=== PATIENT | male | born 1950 | race Caucasian/White ===

== ENCOUNTER 2020-12-19 16:55 | Emergency (ER) | payer OTHER ==
[2020-12-19 17:41] VITALS: BMI 20.9
[2020-12-19 18:31] LABS: EPI CELLS 6 /uL (0-25.1); HYALINE CASTS 0 /uL (0-3.1); PH,URINE 8.5 (5.0-8.0); URINE APPEARANCE CLOUDY; URINE BACTERIA 69 /uL (0-1359); URINE BILIRUBIN NEGATIVE (NEGATIVE); URINE COLOR YELLOW; URINE GLUCOSE (UA) NEGATIVE (NEGATIVE); URINE KETONE NEGATIVE (NEGATIVE); URINE LEUK ESTERASE 1+ (NEGATIVE); URINE NITRITE NEGATIVE (NEGATIVE); URINE PROTEIN NEGATIVE (NEGATIVE); URINE RBC 20 /uL (0-23.9); URINE UROBILINOGEN 0.2 mg/dL (0.2-1.0); URINE WBC 94 /uL (0-25.8)
[2020-12-19 18:39] LABS: BASO % 1.1 % (0-2.0); EOS % 0.1 % (0-4.5); HEMATOCRIT 34.5 % (35.4-49); HEMOGLOBIN 11.8 GM/dL (11.7-16.9); LYMPH % 16.8 % (8-40); MCH 32.3 pg (25.7-33.7); MCHC 34.1 g/dl (32.0-35.9); MEAN CELL VOLUME 94.8 fl (80-96); MEAN PLT VOLUME 6.8 fl (7.5-11.1); MONO % 9.4 % (3.8-10.2); NEUT % 72.6 % (42.8-82.8); PLATELET COUNT 323 10^3/uL (134-434); RBC 3.64 M/mm3 (4.00-5.60); RDW 13.7 % (11.9-15.9); WHITE BLOOD COUNT 5.3 K/mm3 (4.0-10.0)
[2020-12-19 19:01] LABS: ALBUMIN 2.8 g/dl (3.4-5.0); BLOOD UREA NITROGEN 18.9 mg/dL (7-18); CALCIUM 8.9 mg/dL (8.5-10.1)
[2020-12-19 19:04] LABS: CREATININE 0.7 mg/dL (0.55-1.3)
[2020-12-19 19:06] LABS: BILIRUBIN,TOTAL 0.2 mg/dL (0.2-1); TOT PROT 6.2 g/dl (6.4-8.2)
[2020-12-20 00:38] VITALS: BP 126/72; PULSE 83; TEMP 98.6
== END 2020-12-20 00:39 ==
LOC: JER 16:55
DX: R33.9 Retention of urine, unspecified (principal)
CPT/HCPCS: 36415; 80053; 81003; 82570; 83930; 83935; 84300; 85025; 87086; 87186; 99283-25; 99285-25

== ENCOUNTER 2021-06-10 16:49 | Emergency (ER) | payer OTHER ==
[2021-06-10 17:34] VITALS: BMI 20.2
[2021-06-10 18:34] LABS: EPI CELLS 0 /uL (0-25.1); HYALINE CASTS 1 /uL (0-3.1); PH,URINE >= 9.0 (5.0-8.0); URINE APPEARANCE CLOUDY; URINE BACTERIA >9,000 /uL (0-1359); URINE BILIRUBIN NEGATIVE (NEGATIVE); URINE COLOR YELLOW; URINE GLUCOSE (UA) NEGATIVE (NEGATIVE); URINE KETONE NEGATIVE (NEGATIVE); URINE LEUK ESTERASE 3+ (NEGATIVE); URINE NITRITE NEGATIVE (NEGATIVE); URINE PROTEIN TRACE (NEGATIVE); URINE RBC 307 /uL (0-23.9); URINE UROBILINOGEN 0.2 mg/dL (0.2-1.0); URINE WBC 243 /uL (0-25.8)
[2021-06-10] MEDS ORDERED: NITROFURANTOIN MACROCRYSTAL 50 MG CAPSULE (FP) PO SCH (18:45)
[2021-06-10] MEDS ORDERED: CEPHALEXIN MONOHYDRATE 500 MG CAPSULE (UD) PO ONE (18:53)
[2021-06-10] MEDS ORDERED: CEPHALEXIN MONOHYDRATE 500 MG CAPSULE (UD) ONE (19:02)
[2021-06-11 01:49] VITALS: BP 151/85; PULSE 77; TEMP 98.2
== END 2021-06-11 03:20 | disposition home or self-care (01) ==
LOC: JER 16:49
DX: Z46.6 Encounter for fitting and adjustment of urinary device (principal)
CPT/HCPCS: 81003; 87086; 87186; 99283-25

== ENCOUNTER 2021-09-25 21:40 | Inpatient (IN) | payer OTHER ==
[2021-09-25] MEDS ORDERED: SODIUM CHLORIDE 0.9% 500 ML INFUS.BAG IV ONE (22:02)
[2021-09-25] MEDS ORDERED: ACETAMINOPHEN 1000 MG/100 ML BAG IVPB ONE (22:02)
[2021-09-25] MEDS ORDERED: VANCOMYCIN 1 GM in D5W (PRE-DOCKED) 1,000 MG/250 ML IVPB ONE (22:13)
[2021-09-25] MEDS ORDERED: PIPERACILLIN/TAZOB 4.5 GM 4.5 GM in DEXTROSE 5%-WATER 100 ML IVPB ONE (22:13)
[2021-09-25 22:40] LABS: VENOUS O2 SATURATION 71.7 % (70-80); VENOUS PCO2 35.7 mmHg (38-52); VENOUS PH 7.343 (7.310-7.410)
[2021-09-25 22:46] LABS: BASO % 0.3 % (0-2.0); HEMATOCRIT 38.1 % (35.4-49); HEMOGLOBIN 12.6 GM/dL (11.7-16.9); INR 1.09 (0.83-1.09); LYMPH % 28.6 % (8-40); MCH 31.5 pg (25.7-33.7); MCHC 33.2 g/dl (32.0-35.9); MEAN PLT VOLUME 6.8 fl (7.5-11.1); MONO % 0.7 % (3.8-10.2); NEUT % 70.4 % (42.8-82.8); PLATELET COUNT 214 10^3/uL (134-434); PROTHROMBIN TIME (PATIENT) 12.6 SEC (9.7-13.0); RBC 4.01 M/mm3 (4.00-5.60); RDW 14.4 % (11.9-15.9)
[2021-09-25 22:48] LABS: ACTIVATED PTT 26.3 SECONDS (25.2-36.5); WHITE BLOOD COUNT 0.6 K/mm3 (4.0-10.0)
[2021-09-25 22:59] LABS: CHLORIDE 103 mmol/L (98-107); SODIUM 138 mmol/L (136-145)
[2021-09-25 23:01] LABS: CALCIUM 9.3 mg/dL (8.5-10.1)
[2021-09-25 23:02] LABS: ALBUMIN 3.8 g/dl (3.4-5.0); ANION GAP 11 MMOL/L (8-16); BLOOD UREA NITROGEN 26.7 mg/dL (7-18); CO2 24 mmol/L (21-32); GLUCOSE,RANDOM 106 mg/dL (74-106)
[2021-09-25 23:05] LABS: CREATININE 1.1 mg/dL (0.55-1.3); SGOT/AST 34 U/L (15-37); SGPT/ALT 34 U/L (13-61)
[2021-09-25 23:06] LABS: TOT PROT 7.5 g/dl (6.4-8.2)
[2021-09-25 23:07] LABS: BILIRUBIN,TOTAL 0.5 mg/dL (0.2-1)
[2021-09-25] MEDS ORDERED: ACETAMINOPHEN INJECTION 100 ML IVPB ONE (23:17)
[2021-09-25 23:18] LABS: ANISOCYTOSIS 1+; MACROCYTOSIS 0
[2021-09-25] MEDS ORDERED: PIPERACILLIN/TAZOB 4.5 GM 4.5 GM/100 ML BAG IVPB ONE (23:22)
[2021-09-25 23:32] LABS: ALK PHOS 172 U/L (45-117)
[2021-09-25] MEDS ORDERED: VANCOMYCIN 1 GRAM (PRE-DOCKED) 1,000 MG/250 ML BAG IVPB ONE (23:43)
[2021-09-25] MEDS: NOREPINEPHRINE D5W PREMIX 16,000 MCG/500 ML BAG IVPB SCH (23:49)
[2021-09-25 23:50] LABS: EPI CELLS 10 /uL (0-25.1); HYALINE CASTS 9 /uL (0-3.1); PH,URINE 6.5 (5.0-8.0); URINE APPEARANCE TURBID; URINE BACTERIA 832 /uL (0-1359); URINE BILIRUBIN 2+ (NEGATIVE); URINE COLOR RED; URINE GLUCOSE (UA) NEGATIVE (NEGATIVE); URINE KETONE NEGATIVE (NEGATIVE); URINE LEUK ESTERASE 3+ (NEGATIVE); URINE NITRITE NEGATIVE (NEGATIVE); URINE PROTEIN 2+ (NEGATIVE); URINE RBC 16723 /uL (0-23.9); URINE UROBILINOGEN 0.2 mg/dL (0.2-1.0); URINE WBC 1990 /uL (0-25.8)
[2021-09-25] MEDS: SODIUM CHLORIDE 1,000 ML IV SCH (23:56)
[2021-09-25] MEDS ORDERED: CEFEPIME HCL/D5W 2 GM/50 ML BAG IVPB ONE (23:58)
[2021-09-26 01:32] LABS: LACTIC ACID 7.5 mmol/L (0.4-2.0)
[2021-09-26] MEDS ORDERED: PIPERACILLIN/TAZOBACTAM 3.375 GM VIAL IVPB ONE ×3 (02:15→17:11)
[2021-09-26] MEDS ORDERED: DEXTROSE 5%-WATER - 50 ML IVPB ONE ×3 (02:16→17:11)
[2021-09-26] MEDS ORDERED: DEXTROSE 5%-WATER 100 ML IVPB ONE (02:21)
[2021-09-26] MEDS ORDERED: CEFEPIME HCL 2 GM VIAL (RESTRICTED TO ID) ONE (02:21)
[2021-09-26] MEDS: PIPERACILLIN/TAZOB 3.375 GM 3.375 GM in DEXTROSE 5%-WATER - 50 ML IVPB SCH ×3 (02:23→17:12)
[2021-09-26] MEDS ORDERED: CEFEPIME 2 GM in DEXTROSE 5%-WATER 100 ML IVPB ONE (02:30)
[2021-09-26] MEDS ORDERED: MECLIZINE HCL 25 MG TABLET (FP) PO PRN (06:17)
[2021-09-26 07:12] LABS: BLOOD UREA NITROGEN 26.2 mg/dL (7-18); CALCIUM 8.5 mg/dL (8.5-10.1)
[2021-09-26 07:16] LABS: CREATININE 1.3 mg/dL (0.55-1.3)
[2021-09-26 07:17] LABS: BILIRUBIN,TOTAL 3.5 mg/dL (0.2-1); HEMATOCRIT 36.5 % (35.4-49); HEMOGLOBIN 12.7 GM/dL (11.7-16.9); MCH 31.5 pg (25.7-33.7); MCHC 34.7 g/dl (32.0-35.9); MEAN CELL VOLUME 90.8 fl (80-96); MEAN PLT VOLUME 7.5 fl (7.5-11.1); PLATELET COUNT 135 10^3/uL (134-434); RBC 4.02 M/mm3 (4.00-5.60); RDW 17.3 % (11.9-15.9); WHITE BLOOD COUNT 9.3 K/mm3 (4.0-10.0)
[2021-09-26 07:22] LABS: ALBUMIN 2.7 g/dl (3.4-5.0); TOT PROT 5.4 g/dl (6.4-8.2)
[2021-09-26 07:22] LABS: LACTIC ACID 7.2 mmol/L (0.4-2.0)
[2021-09-26] MEDS: FINASTERIDE 5 MG TABLET (FP) PO SCH (09:40)
[2021-09-26] MEDS: TAMSULOSIN HCL 0.4 MG CAP PO SCH (09:40)
[2021-09-26] MEDS: ENOXAPARIN NA (PORCINE) 40 MG/0.4 ML DISP.SYRIN SQ SCH (09:40)
[2021-09-26] MEDS: levETIRAcetam 500 MG TABLET (FP) PO SCH ×2 (09:40→21:03)
[2021-09-26] MEDS: MUPIROCIN 2% TOPICAL OINTMENT FOR DECOLONIZATION NS SCH ×2 (09:41→21:03)
[2021-09-26 09:42] LABS: ANISOCYTOSIS 1+; MACROCYTOSIS 0
[2021-09-26 11:42] LABS: LACTIC ACID 6.3 mmol/L (0.4-2.0)
[2021-09-26] MEDS: SODIUM CHLORIDE 1,000 ML IV SCH (14:03)
[2021-09-26 19:23] LABS: LACTIC ACID 5.2 mmol/L (0.4-2.0)
[2021-09-26] MEDS: CHLORHEXIDINE GLUCONATE 4% CLEANSER FOR DECOLONIZATION TP SCH (21:03)
[2021-09-26] MEDS: NOREPINEPHRINE D5W PREMIX 16,000 MCG/500 ML BAG IVPB SCH (21:04)
[2021-09-26] MEDS: LATANOPROST 0.005% OPHTH SOLN 2.5ML BOTTLE OU SCH (21:05)
[2021-09-26] MEDS: MINERAL OIL/PET HY-PHL TOPICAL OINTMENT 454 GM JAR TP SCH (22:00)
[2021-09-27] MEDS ORDERED: VANCOMYCIN 1 GM in D5W (PRE-DOCKED) 1,000 MG/250 ML IVPB SCH
[2021-09-27] MEDS: NOREPINEPHRINE D5W PREMIX 16,000 MCG/500 ML BAG IVPB SCH ×2 (00:11→23:30)
[2021-09-27] MEDS ORDERED: PIPERACILLIN/TAZOBACTAM 3.375 GM VIAL IVPB ONE (01:24)
[2021-09-27] MEDS ORDERED: DEXTROSE 5%-WATER - 50 ML IVPB ONE (01:24)
[2021-09-27] MEDS: PIPERACILLIN/TAZOB 3.375 GM 3.375 GM in DEXTROSE 5%-WATER - 50 ML IVPB SCH (01:31)
[2021-09-27] MEDS: SODIUM CHLORIDE 1,000 ML IV SCH (04:46)
[2021-09-27 06:29] LABS: HEMATOCRIT 33.8 % (35.4-49); HEMOGLOBIN 11.3 GM/dL (11.7-16.9); MCH 30.3 pg (25.7-33.7); MCHC 33.5 g/dl (32.0-35.9); MEAN CELL VOLUME 90.5 fl (80-96); PLATELET COUNT 100 10^3/uL (134-434); RBC 3.73 M/mm3 (4.00-5.60)
[2021-09-27 06:46] LABS: CALCIUM 7.5 mg/dL (8.5-10.1)
[2021-09-27 06:47] LABS: ALBUMIN 2.4 g/dl (3.4-5.0); BLOOD UREA NITROGEN 28.4 mg/dL (7-18)
[2021-09-27 06:50] LABS: CREATININE 1.3 mg/dL (0.55-1.3)
[2021-09-27] MEDS: TAMSULOSIN HCL 0.4 MG CAP PO SCH (09:47)
[2021-09-27] MEDS: MUPIROCIN 2% TOPICAL OINTMENT FOR DECOLONIZATION NS SCH ×2 (09:47→21:10)
[2021-09-27] MEDS: MINERAL OIL/PET HY-PHL TOPICAL OINTMENT 454 GM JAR TP SCH (09:47)
[2021-09-27] MEDS: levETIRAcetam 500 MG TABLET (FP) PO SCH ×2 (09:47→21:07)
[2021-09-27] MEDS: FINASTERIDE 5 MG TABLET (FP) PO SCH (09:47)
[2021-09-27] MEDS: ENOXAPARIN NA (PORCINE) 40 MG/0.4 ML DISP.SYRIN SQ SCH (09:47)
[2021-09-27] MEDS ORDERED: MEROPENEM 1 GM VIAL (RESTRICTED TO ID) IVPB ONE ×2 (09:48→16:59)
[2021-09-27] MEDS ORDERED: DEXTROSE 5%-WATER 100 ML IVPB ONE ×2 (09:49→17:00)
[2021-09-27] MEDS ORDERED: MEROPENEM 1 GM in DEXTROSE 5%-WATER 100 ML IVPB SCH (10:00)
[2021-09-27 10:29] LABS: ANISOCYTOSIS 1+; MACROCYTOSIS 0
[2021-09-27] MEDS ORDERED: LACTATED RINGERS SOLUTION 1000 ML INFUS.BAG IV ONE (12:44)
[2021-09-27] MEDS: LACTATED RINGERS SOLUTION 1,000 ML/1,000 ML INFUS.BAG IV SCH ×2 (14:23→21:09)
[2021-09-27] MEDS: MEROPENEM 1 GM in DEXTROSE 5%-WATER 100 ML IVPB SCH (17:24)
[2021-09-27] MEDS: CHLORHEXIDINE GLUCONATE 4% CLEANSER FOR DECOLONIZATION TP SCH (21:08)
[2021-09-27] MEDS: LATANOPROST 0.005% OPHTH SOLN 2.5ML BOTTLE OU SCH (21:10)
[2021-09-28] MEDS ORDERED: VANCOMYCIN 1 GM in D5W (PRE-DOCKED) 1,000 MG/250 ML IVPB SCH
[2021-09-28] MEDS ORDERED: DEXTROSE 5%-WATER 100 ML IVPB ONE ×3 (01:00→17:48)
[2021-09-28] MEDS ORDERED: MEROPENEM 1 GM VIAL (RESTRICTED TO ID) IVPB ONE ×3 (01:00→17:48)
[2021-09-28] MEDS: MEROPENEM 1 GM in DEXTROSE 5%-WATER 100 ML IVPB SCH ×3 (01:01→18:10)
[2021-09-28] MEDS: NOREPINEPHRINE D5W PREMIX 16,000 MCG/500 ML BAG IVPB SCH (01:02)
[2021-09-28 07:09] LABS: HEMATOCRIT 27.2 % (35.4-49); HEMOGLOBIN 9.2 GM/dL (11.7-16.9); MCH 30.2 pg (25.7-33.7); MEAN CELL VOLUME 88.9 fl (80-96); MEAN PLT VOLUME 8.7 fl (7.5-11.1); PLATELET COUNT 63 10^3/uL (134-434); RBC 3.06 M/mm3 (4.00-5.60); RDW 17.2 % (11.9-15.9); WHITE BLOOD COUNT 12.6 K/mm3 (4.0-10.0)
[2021-09-28 07:45] LABS: CALCIUM 7.9 mg/dL (8.5-10.1)
[2021-09-28 07:46] LABS: BLOOD UREA NITROGEN 19.7 mg/dL (7-18)
[2021-09-28 07:49] LABS: CREATININE 0.7 mg/dL (0.55-1.3)
[2021-09-28] MEDS: LACTATED RINGERS SOLUTION 1,000 ML/1,000 ML INFUS.BAG IV SCH (08:00)
[2021-09-28] MEDS: TAMSULOSIN HCL 0.4 MG CAP PO SCH (09:36)
[2021-09-28] MEDS: ENOXAPARIN NA (PORCINE) 40 MG/0.4 ML DISP.SYRIN SQ SCH (09:36)
[2021-09-28] MEDS: levETIRAcetam 500 MG TABLET (FP) PO SCH ×2 (09:36→21:59)
[2021-09-28] MEDS: MINERAL OIL/PET HY-PHL TOPICAL OINTMENT 454 GM JAR TP SCH (09:36)
[2021-09-28] MEDS: FINASTERIDE 5 MG TABLET (FP) PO SCH (09:37)
[2021-09-28] MEDS: MUPIROCIN 2% TOPICAL OINTMENT FOR DECOLONIZATION NS SCH ×2 (09:37→21:59)
[2021-09-28] MEDS ORDERED: POTASSIUM CHLORIDE TABS 20 MEQ TABLET.ER (FP) PO ONE (10:00)
[2021-09-28 10:06] LABS: ANISOCYTOSIS 0; HELMET CELLS 0; HOWELL-JOLLY BODIES 0; MACROCYTOSIS 0; OVALOCYTE 0; ROULEAU 0; SICKELED CELLS 0; TARGET CELLS 0; TEAR DROP CELLS 0; TOXIC GRANULATION 0
[2021-09-28] MEDS ORDERED: ACETAMINOPHEN 1000 MG/100 ML BAG IVPB ONE (20:28)
[2021-09-28] MEDS: LATANOPROST 0.005% OPHTH SOLN 2.5ML BOTTLE OU SCH (21:59)
[2021-09-28] MEDS: CHLORHEXIDINE GLUCONATE 4% CLEANSER FOR DECOLONIZATION TP SCH (21:59)
[2021-09-29] MEDS ORDERED: MEROPENEM 1 GM VIAL (RESTRICTED TO ID) IVPB ONE ×4 (01:21→23:07)
[2021-09-29] MEDS ORDERED: DEXTROSE 5%-WATER 100 ML IVPB ONE ×4 (01:21→23:07)
[2021-09-29] MEDS: MEROPENEM 1 GM in DEXTROSE 5%-WATER 100 ML IVPB SCH ×3 (01:25→17:22)
[2021-09-29 07:01] LABS: CALCIUM 8.3 mg/dL (8.5-10.1)
[2021-09-29 07:02] LABS: BLOOD UREA NITROGEN 18.6 mg/dL (7-18); HEMATOCRIT 28.8 % (35.4-49); HEMOGLOBIN 9.7 GM/dL (11.7-16.9); MCH 30.7 pg (25.7-33.7); MCHC 33.8 g/dl (32.0-35.9); MEAN CELL VOLUME 90.9 fl (80-96); MEAN PLT VOLUME 9.9 fl (7.5-11.1); PLATELET COUNT 60 10^3/uL (134-434); RBC 3.17 M/mm3 (4.00-5.60); RDW 17.8 % (11.9-15.9); WHITE BLOOD COUNT 10.5 K/mm3 (4.0-10.0)
[2021-09-29 07:05] LABS: CREATININE 0.6 mg/dL (0.55-1.3); PHOSPHOROUS 1.5 mg/dL (2.5-4.9)
[2021-09-29] MEDS: TAMSULOSIN HCL 0.4 MG CAP PO SCH (08:42)
[2021-09-29] MEDS: ENOXAPARIN NA (PORCINE) 40 MG/0.4 ML DISP.SYRIN SQ SCH (09:17)
[2021-09-29] MEDS: FINASTERIDE 5 MG TABLET (FP) PO SCH (09:17)
[2021-09-29] MEDS: MUPIROCIN 2% TOPICAL OINTMENT FOR DECOLONIZATION NS SCH ×2 (09:17→22:59)
[2021-09-29] MEDS: levETIRAcetam 500 MG TABLET (FP) PO SCH ×2 (09:17→22:59)
[2021-09-29] MEDS: MINERAL OIL/PET HY-PHL TOPICAL OINTMENT 454 GM JAR TP SCH (09:17)
[2021-09-29 13:21] VITALS: BMI 28.0
[2021-09-29] MEDS: CHLORHEXIDINE GLUCONATE 4% CLEANSER FOR DECOLONIZATION TP SCH (22:59)
[2021-09-29] MEDS: LATANOPROST 0.005% OPHTH SOLN 2.5ML BOTTLE OU SCH (22:59)
[2021-09-30] MEDS: MEROPENEM 1 GM in DEXTROSE 5%-WATER 100 ML IVPB SCH ×3 (03:29→17:50)
[2021-09-30 07:07] LABS: HEMATOCRIT 28.7 % (35.4-49); HEMOGLOBIN 9.6 GM/dL (11.7-16.9); MCH 30.4 pg (25.7-33.7); MCHC 33.5 g/dl (32.0-35.9); MEAN CELL VOLUME 90.8 fl (80-96); MEAN PLT VOLUME 9.2 fl (7.5-11.1); PLATELET COUNT 74 10^3/uL (134-434); RBC 3.16 M/mm3 (4.00-5.60); RDW 17.2 % (11.9-15.9); WHITE BLOOD COUNT 6.7 K/mm3 (4.0-10.0)
[2021-09-30 07:23] LABS: BLOOD UREA NITROGEN 21.2 mg/dL (7-18); CALCIUM 8.4 mg/dL (8.5-10.1)
[2021-09-30 07:25] LABS: CREATININE 0.6 mg/dL (0.55-1.3)
[2021-09-30] MEDS ORDERED: MEROPENEM 1 GM VIAL (RESTRICTED TO ID) IVPB ONE ×2 (10:21→17:45)
[2021-09-30] MEDS ORDERED: DEXTROSE 5%-WATER 100 ML IVPB ONE ×2 (10:21→17:45)
[2021-09-30] MEDS: ENOXAPARIN NA (PORCINE) 40 MG/0.4 ML DISP.SYRIN SQ SCH (10:23)
[2021-09-30] MEDS: MINERAL OIL/PET HY-PHL TOPICAL OINTMENT 454 GM JAR TP SCH (10:23)
[2021-09-30] MEDS: FINASTERIDE 5 MG TABLET (FP) PO SCH (10:23)
[2021-09-30] MEDS: levETIRAcetam 500 MG TABLET (FP) PO SCH ×2 (10:23→23:11)
[2021-09-30] MEDS: TAMSULOSIN HCL 0.4 MG CAP PO SCH (10:23)
[2021-09-30] MEDS: MUPIROCIN 2% TOPICAL OINTMENT FOR DECOLONIZATION NS SCH ×2 (10:24→23:13)
[2021-09-30] MEDS: CHLORHEXIDINE GLUCONATE 4% CLEANSER FOR DECOLONIZATION TP SCH (23:14)
[2021-09-30] MEDS: LATANOPROST 0.005% OPHTH SOLN 2.5ML BOTTLE OU SCH (23:14)
[2021-10-01] MEDS: MEROPENEM 1 GM in DEXTROSE 5%-WATER 100 ML IVPB SCH ×3 (01:42→18:14)
[2021-10-01] MEDS ORDERED: MEROPENEM 1 GM VIAL (RESTRICTED TO ID) IVPB ONE ×3 (03:41→17:57)
[2021-10-01] MEDS ORDERED: DEXTROSE 5%-WATER 100 ML IVPB ONE ×3 (03:41→17:57)
[2021-10-01] MEDS: ENOXAPARIN NA (PORCINE) 40 MG/0.4 ML DISP.SYRIN SQ SCH (10:33)
[2021-10-01] MEDS: levETIRAcetam 500 MG TABLET (FP) PO SCH ×2 (10:34→21:58)
[2021-10-01] MEDS: FINASTERIDE 5 MG TABLET (FP) PO SCH (10:34)
[2021-10-01] MEDS: TAMSULOSIN HCL 0.4 MG CAP PO SCH (10:34)
[2021-10-01] MEDS: MINERAL OIL/PET HY-PHL TOPICAL OINTMENT 454 GM JAR TP SCH (12:00)
[2021-10-01] MEDS ORDERED: MECLIZINE HCL 25 MG TABLET (FP) PO PRN (16:51)
[2021-10-01] MEDS: LATANOPROST 0.005% OPHTH SOLN 2.5ML BOTTLE OU SCH (21:58)
[2021-10-01] MEDS: PHENobarbital 30 MG TABLET PO SCH (21:58)
[2021-10-01] MEDS ORDERED: CHLORHEXIDINE GLUCONATE 4% CLEANSER FOR DECOLONIZATION TP SCH (22:00)
[2021-10-02] MEDS: MEROPENEM 1 GM in DEXTROSE 5%-WATER 100 ML IVPB SCH ×3 (01:57→17:21)
[2021-10-02] MEDS ORDERED: DEXTROSE 5%-WATER 100 ML IVPB ONE ×3 (02:15→17:18)
[2021-10-02] MEDS ORDERED: MEROPENEM 1 GM VIAL (RESTRICTED TO ID) IVPB ONE ×3 (02:15→17:18)
[2021-10-02 09:00] LABS: HEMATOCRIT 29.6 % (35.4-49); MCH 30.7 pg (25.7-33.7); MCHC 33.8 g/dl (32.0-35.9); MEAN CELL VOLUME 90.6 fl (80-96); MEAN PLT VOLUME 7.9 fl (7.5-11.1); PLATELET COUNT 190 10^3/uL (134-434); RBC 3.26 M/mm3 (4.00-5.60); RDW 16.1 % (11.9-15.9)
[2021-10-02 09:30] LABS: ALBUMIN 2.4 g/dl (3.4-5.0); BLOOD UREA NITROGEN 19.9 mg/dL (7-18); CALCIUM 8.6 mg/dL (8.5-10.1); MAGNESIUM 2.1 mg/dL (1.8-2.4)
[2021-10-02 09:33] LABS: CREATININE 0.5 mg/dL (0.55-1.3); PHOSPHOROUS 2.8 mg/dL (2.5-4.9)
[2021-10-02 09:34] LABS: BILIRUBIN,TOTAL 0.5 mg/dL (0.2-1); TOT PROT 5.2 g/dl (6.4-8.2)
[2021-10-02] MEDS: TAMSULOSIN HCL 0.4 MG CAP PO SCH (10:28)
[2021-10-02] MEDS: levETIRAcetam 500 MG TABLET (FP) PO SCH ×2 (10:28→21:27)
[2021-10-02] MEDS: PHENobarbital 30 MG TABLET PO SCH ×2 (10:29→21:26)
[2021-10-02] MEDS: FINASTERIDE 5 MG TABLET (FP) PO SCH (10:30)
[2021-10-02] MEDS: ENOXAPARIN NA (PORCINE) 40 MG/0.4 ML DISP.SYRIN SQ SCH (10:32)
[2021-10-02] MEDS: MINERAL OIL/PET HY-PHL TOPICAL OINTMENT 454 GM JAR TP SCH (11:00)
[2021-10-02 11:19] LABS: ANISOCYTOSIS 1+; MACROCYTOSIS 0; PLATELET ESTIMATE NORMAL
[2021-10-02] MEDS: LATANOPROST 0.005% OPHTH SOLN 2.5ML BOTTLE OU SCH (21:27)
[2021-10-03] MEDS ORDERED: MEROPENEM 1 GM VIAL (RESTRICTED TO ID) IVPB ONE ×3 (01:57→17:42)
[2021-10-03] MEDS ORDERED: DEXTROSE 5%-WATER 100 ML IVPB ONE ×3 (01:57→17:43)
[2021-10-03] MEDS: MEROPENEM 1 GM in DEXTROSE 5%-WATER 100 ML IVPB SCH ×3 (02:11→18:01)
[2021-10-03] MEDS: PHENobarbital 30 MG TABLET PO SCH ×3 (10:21→23:44)
[2021-10-03] MEDS: FINASTERIDE 5 MG TABLET (FP) PO SCH (10:21)
[2021-10-03] MEDS: TAMSULOSIN HCL 0.4 MG CAP PO SCH (10:21)
[2021-10-03] MEDS: levETIRAcetam 500 MG TABLET (FP) PO SCH ×2 (10:22→23:44)
[2021-10-03] MEDS: ENOXAPARIN NA (PORCINE) 40 MG/0.4 ML DISP.SYRIN SQ SCH (10:22)
[2021-10-03] MEDS: MINERAL OIL/PET HY-PHL TOPICAL OINTMENT 454 GM JAR TP SCH (11:11)
[2021-10-03] MEDS: LATANOPROST 0.005% OPHTH SOLN 2.5ML BOTTLE OU SCH (23:44)
[2021-10-04] MEDS ORDERED: DEXTROSE 5%-WATER 100 ML IVPB ONE ×3 (02:49→18:06)
[2021-10-04] MEDS ORDERED: MEROPENEM 1 GM VIAL (RESTRICTED TO ID) IVPB ONE ×3 (02:49→18:06)
[2021-10-04] MEDS: MEROPENEM 1 GM in DEXTROSE 5%-WATER 100 ML IVPB SCH ×3 (03:01→18:11)
[2021-10-04] MEDS: TAMSULOSIN HCL 0.4 MG CAP PO SCH (09:38)
[2021-10-04] MEDS: levETIRAcetam 500 MG TABLET (FP) PO SCH ×2 (09:38→21:29)
[2021-10-04] MEDS: PHENobarbital 30 MG TABLET PO SCH ×2 (09:38→21:30)
[2021-10-04] MEDS: ENOXAPARIN NA (PORCINE) 40 MG/0.4 ML DISP.SYRIN SQ SCH (09:38)
[2021-10-04] MEDS: FINASTERIDE 5 MG TABLET (FP) PO SCH (09:38)
[2021-10-04] MEDS: MINERAL OIL/PET HY-PHL TOPICAL OINTMENT 454 GM JAR TP SCH (12:29)
[2021-10-04] MEDS ORDERED: ACETAMINOPHEN 325 MG TABLET (FP) PO ONE (22:14)
[2021-10-04] MEDS: LATANOPROST 0.005% OPHTH SOLN 2.5ML BOTTLE OU SCH (22:47)
[2021-10-05] MEDS ORDERED: MEROPENEM 1 GM VIAL (RESTRICTED TO ID) IVPB ONE ×3 (01:08→17:13)
[2021-10-05] MEDS ORDERED: DEXTROSE 5%-WATER 100 ML IVPB ONE ×3 (01:08→17:13)
[2021-10-05] MEDS: MEROPENEM 1 GM in DEXTROSE 5%-WATER 100 ML IVPB SCH ×3 (01:55→17:20)
[2021-10-05] MEDS: TAMSULOSIN HCL 0.4 MG CAP PO SCH (08:51)
[2021-10-05] MEDS: PHENobarbital 30 MG TABLET PO SCH ×2 (09:13→21:10)
[2021-10-05] MEDS: levETIRAcetam 500 MG TABLET (FP) PO SCH ×2 (09:13→21:10)
[2021-10-05] MEDS: MINERAL OIL/PET HY-PHL TOPICAL OINTMENT 454 GM JAR TP SCH (09:13)
[2021-10-05] MEDS: FINASTERIDE 5 MG TABLET (FP) PO SCH (09:13)
[2021-10-05] MEDS: ENOXAPARIN NA (PORCINE) 40 MG/0.4 ML DISP.SYRIN SQ SCH (09:13)
[2021-10-05] MEDS: LATANOPROST 0.005% OPHTH SOLN 2.5ML BOTTLE OU SCH (21:10)
[2021-10-06] MEDS ORDERED: LIDOCAINE 5% TOPICAL PATCH TP ONE ×2 (00:24→21:58)
[2021-10-06] MEDS ORDERED: ACETAMINOPHEN 325 MG TABLET (FP) PO ONE ×2 (00:25→21:59)
[2021-10-06] MEDS ORDERED: MEROPENEM 1 GM VIAL (RESTRICTED TO ID) IVPB ONE ×3 (00:47→17:57)
[2021-10-06] MEDS ORDERED: DEXTROSE 5%-WATER 100 ML IVPB ONE ×3 (00:48→17:58)
[2021-10-06] MEDS: MEROPENEM 1 GM in DEXTROSE 5%-WATER 100 ML IVPB SCH ×3 (00:59→17:59)
[2021-10-06] MEDS: ENOXAPARIN NA (PORCINE) 40 MG/0.4 ML DISP.SYRIN SQ SCH (10:24)
[2021-10-06] MEDS: TAMSULOSIN HCL 0.4 MG CAP PO SCH (10:24)
[2021-10-06] MEDS: PHENobarbital 30 MG TABLET PO SCH ×2 (10:24→22:20)
[2021-10-06] MEDS: levETIRAcetam 500 MG TABLET (FP) PO SCH ×2 (10:24→22:20)
[2021-10-06] MEDS: FINASTERIDE 5 MG TABLET (FP) PO SCH (10:24)
[2021-10-06] MEDS: MINERAL OIL/PET HY-PHL TOPICAL OINTMENT 454 GM JAR TP SCH (10:26)
[2021-10-06] MEDS: LATANOPROST 0.005% OPHTH SOLN 2.5ML BOTTLE OU SCH (22:21)
[2021-10-07] MEDS ORDERED: MEROPENEM 1 GM VIAL (RESTRICTED TO ID) IVPB ONE ×3 (00:58→17:07)
[2021-10-07] MEDS ORDERED: DEXTROSE 5%-WATER 100 ML IVPB ONE ×3 (00:58→17:07)
[2021-10-07] MEDS: MEROPENEM 1 GM in DEXTROSE 5%-WATER 100 ML IVPB SCH ×3 (01:57→17:11)
[2021-10-07] MEDS ORDERED: LIDOCAINE PATCH REMOVAL MC SCH (10:00)
[2021-10-07] MEDS: ENOXAPARIN NA (PORCINE) 40 MG/0.4 ML DISP.SYRIN SQ SCH (10:20)
[2021-10-07] MEDS: PHENobarbital 30 MG TABLET PO SCH (10:20)
[2021-10-07] MEDS: TAMSULOSIN HCL 0.4 MG CAP PO SCH (10:21)
[2021-10-07] MEDS: FINASTERIDE 5 MG TABLET (FP) PO SCH (10:21)
[2021-10-07] MEDS: MINERAL OIL/PET HY-PHL TOPICAL OINTMENT 454 GM JAR TP SCH (10:21)
[2021-10-07] MEDS: levETIRAcetam 500 MG TABLET (FP) PO SCH (10:21)
[2021-10-07 16:08] LABS: SARS-CoV-2 NAA Not Detected (Not Detected)
[2021-10-08] MEDS: levETIRAcetam 500 MG TABLET (FP) PO SCH ×2 (00:31→09:33)
[2021-10-08] MEDS: LATANOPROST 0.005% OPHTH SOLN 2.5ML BOTTLE OU SCH (00:32)
[2021-10-08] MEDS: PHENobarbital 30 MG TABLET PO SCH ×2 (00:32→09:33)
[2021-10-08] MEDS ORDERED: MEROPENEM 1 GM VIAL (RESTRICTED TO ID) IVPB ONE ×2 (02:12→09:27)
[2021-10-08] MEDS ORDERED: DEXTROSE 5%-WATER 100 ML IVPB ONE ×2 (02:12→09:28)
[2021-10-08] MEDS: MEROPENEM 1 GM in DEXTROSE 5%-WATER 100 ML IVPB SCH ×2 (02:25→09:32)
[2021-10-08] MEDS ORDERED: ACETAMINOPHEN 325 MG TABLET (FP) PO ONE (03:25)
[2021-10-08 06:53] VITALS: BP 107/64; PULSE 60; TEMP 97.8
[2021-10-08] MEDS: TAMSULOSIN HCL 0.4 MG CAP PO SCH (09:33)
[2021-10-08] MEDS: ENOXAPARIN NA (PORCINE) 40 MG/0.4 ML DISP.SYRIN SQ SCH (09:33)
[2021-10-08] MEDS: MINERAL OIL/PET HY-PHL TOPICAL OINTMENT 454 GM JAR TP SCH (09:33)
[2021-10-08] MEDS: FINASTERIDE 5 MG TABLET (FP) PO SCH (09:33)
== END 2021-10-08 12:23 | DRG 871 ==
LOC: JER 21:40 → JERBED 23:45 → JICU 09-26 02:10 → J8W 09-30 18:52
PROVIDERS: ADMIT Internal Medicine Pulmonary Disease; ATTEND Internal Medicine
PROC: 30233N1 Transfusion of Nonautologous Red Blood Cells into Peripheral Vein, Percutaneous Approach (ICD-10-PCS; principal; 2021-09-25)
DX: A41.51 Sepsis due to Escherichia coli [E. coli] (principal); R65.21 Severe sepsis with septic shock; N39.0 Urinary tract infection, site not specified; I24.8 Other forms of acute ischemic heart disease; D62 Acute posthemorrhagic anemia; G81.91 Hemiplegia, unspecified affecting right dominant side; E87.2 Acidosis; N40.0 Benign prostatic hyperplasia without lower urinary tract symptoms; G40.909 Epilepsy, unspecified, not intractable, without status epilepticus; B96.20 Unspecified Escherichia coli [E. coli] as the cause of diseases classified elsewhere; D69.6 Thrombocytopenia, unspecified; H40.9 Unspecified glaucoma; E11.9 Type 2 diabetes mellitus without complications; K59.00 Constipation, unspecified; K44.9 Diaphragmatic hernia without obstruction or gangrene; E66.9 Obesity, unspecified; Z68.28 Body mass index [BMI] 28.0-28.9, adult; R31.9 Hematuria, unspecified; B96.5 Pseudomonas (aeruginosa) (mallei) (pseudomallei) as the cause of diseases classified elsewhere; S39.848A Other specified injuries of external genitals, initial encounter; T83.9XXD Unspecified complication of genitourinary prosthetic device, implant and graft, subsequent encounter; Y84.8 Other medical procedures as the cause of abnormal reaction of the patient, or of later complication, without mention of misadventure at the time of the procedure
CPT/HCPCS: 36415; 36430; 71045-TC-FY; 74177-TC; 80048; 80053; 81003; 82553; 82803; 82962; 83605; 83735; 84100; 84484; 85025; 85027; 85610; 85730; 86850; 86900; 86901; 86922; 87040; 87086; 87186; 87324; 87449; 93005; 93010; 99285-25; C9803-CS; P9058; Q9967; U0003; U0005

== ENCOUNTER 2021-12-05 19:13 | Inpatient (IN) | payer OTHER, MEDICARE ==
[2021-12-05 20:03] LABS: BASO % 0.2 % (0-2.0); HEMATOCRIT 39.8 % (35.4-49); HEMOGLOBIN 13.4 GM/dL (11.7-16.9); MCH 30.7 pg (25.7-33.7); MCHC 33.6 g/dl (32.0-35.9); MEAN CELL VOLUME 91.5 fl (80-96); MEAN PLT VOLUME 7.7 fl (7.5-11.1); NEUT % 84.8 % (42.8-82.8); PLATELET COUNT 280 10^3/uL (134-434); RBC 4.35 M/mm3 (4.00-5.60); WHITE BLOOD COUNT 9.8 K/mm3 (4.0-10.0)
[2021-12-05] MEDS ORDERED: ACETAMINOPHEN 1000 MG/100 ML BAG IVPB ONE (20:09)
[2021-12-05] MEDS ORDERED: ACETAMINOPHEN INJECTION 100 ML IVPB ONE (20:16)
[2021-12-05 20:18] LABS: CHLORIDE 101 mmol/L (98-107); SODIUM 123 mmol/L (136-145)
[2021-12-05 20:20] LABS: CO2 22 mmol/L (21-32); GLUCOSE,RANDOM 140 mg/dL (74-106)
[2021-12-05 20:21] LABS: ALBUMIN 3.6 g/dl (3.4-5.0); BLOOD UREA NITROGEN 10.3 mg/dL (7-18); MAGNESIUM 2.4 mg/dL (1.8-2.4)
[2021-12-05 20:23] LABS: PHOSPHOROUS 3.8 mg/dL (2.5-4.9)
[2021-12-05 20:24] LABS: CREATININE 0.8 mg/dL (0.55-1.3)
[2021-12-05 20:25] LABS: TOT PROT 9.1 g/dl (6.4-8.2)
[2021-12-05 20:26] LABS: ALK PHOS 166 U/L (45-117)
[2021-12-05 20:29] LABS: ANION GAP 0 MMOL/L (8-16); SGOT/AST 209 U/L (15-37)
[2021-12-05 20:33] LABS: LACTIC ACID 2.8 mmol/L (0.4-2.0)
[2021-12-05] MEDS ORDERED: LIDOCAINE HCL 2% JELLY 10 ML CARTRIDGE ONE ×2 (21:30→21:35)
[2021-12-05] MEDS ORDERED: LIDOCAINE HCL 2% JELLY 10 ML CARTRIDGE PR ONE (21:30)
[2021-12-05 21:55] LABS: CHLORIDE 75 mmol/L (98-107)
[2021-12-05 21:58] LABS: BLOOD UREA NITROGEN 8.3 mg/dL (7-18); CO2 19 mmol/L (21-32); GLUCOSE,RANDOM 116 mg/dL (74-106)
[2021-12-05 22:01] LABS: CREATININE 0.4 mg/dL (0.55-1.3); SGOT/AST 17 U/L (15-37); SGPT/ALT 16 U/L (13-61)
[2021-12-05 22:02] LABS: BILIRUBIN,TOTAL 0.3 mg/dL (0.2-1)
[2021-12-05] MEDS ORDERED: POTASSIUM CHLORIDE TABS 20 MEQ TABLET.ER (FP) PO ONE ×2 (22:18→22:31)
[2021-12-05] MEDS ORDERED: SODIUM CHLORIDE 0.9% 500 ML INFUS.BAG IV ONE (22:21)
[2021-12-05 22:29] LABS: LIPASE 94 U/L (73-393)
[2021-12-05 22:34] LABS: ALBUMIN 2.8 g/dl (3.4-5.0); ALK PHOS 126 U/L (45-117); ANION GAP 16 MMOL/L (8-16); CALCIUM 7.2 mg/dL (8.5-10.1); SODIUM 109 mmol/L (136-145); TOT PROT 5.6 g/dl (6.4-8.2)
[2021-12-05] MEDS ORDERED: SODIUM CHLORIDE 3% 500 ML/500 ML INFUS.BAG IV ONE (22:42)
[2021-12-06 00:25] LABS: EPI CELLS >36 /uL (0-25.1); HYALINE CASTS 30 /uL (0-3.1); PH,URINE 5.5 (5.0-8.0); URINE APPEARANCE TURBID; URINE BACTERIA >9,000 /uL (0-1359); URINE BILIRUBIN NEGATIVE (NEGATIVE); URINE COLOR YELLOW; URINE GLUCOSE (UA) NEGATIVE (NEGATIVE); URINE KETONE NEGATIVE (NEGATIVE); URINE LEUK ESTERASE 3+ (NEGATIVE); URINE NITRITE NEGATIVE (NEGATIVE); URINE PROTEIN 2+ (NEGATIVE); URINE UROBILINOGEN 0.2 mg/dL (0.2-1.0); URINE WBC 29546 /uL (0-25.8)
[2021-12-06] MEDS ORDERED: MEROPENEM 1 GM in DEXTROSE 5%-WATER 100 ML IVPB ONE (00:27)
[2021-12-06] MEDS ORDERED: MEROPENEM 1 GM VIAL (RESTRICTED TO ID) IVPB ONE ×4 (00:35→23:36)
[2021-12-06 00:53] LABS: URINE RBC 874.6 /uL (0-23.9); YEAST NONE SEEN (NEGATIVE)
[2021-12-06 02:01] LABS: BLOOD UREA NITROGEN 10.7 mg/dL (7-18)
[2021-12-06 02:04] LABS: CREATININE 0.6 mg/dL (0.55-1.3)
[2021-12-06 02:06] LABS: BILIRUBIN,TOTAL 0.6 mg/dL (0.2-1); TOT PROT 6.8 g/dl (6.4-8.2)
[2021-12-06 02:20] LABS: ALBUMIN 3.4 g/dl (3.4-5.0)
[2021-12-06 08:20] LABS: HEMATOCRIT 36.6 % (35.4-49); HEMOGLOBIN 12.1 GM/dL (11.7-16.9); LYMPH % 8.7 % (8-40); MCH 30.9 pg (25.7-33.7); MCHC 33.1 g/dl (32.0-35.9); MEAN CELL VOLUME 93.4 fl (80-96); MEAN PLT VOLUME 7.4 fl (7.5-11.1); NEUT % 84.3 % (42.8-82.8); PLATELET COUNT 253 10^3/uL (134-434); RBC 3.91 M/mm3 (4.00-5.60); RDW 14.1 % (11.9-15.9); WHITE BLOOD COUNT 8.1 K/mm3 (4.0-10.0)
[2021-12-06 08:24] LABS: CHLORIDE 110 mmol/L (98-107); SODIUM 142 mmol/L (136-145)
[2021-12-06 08:29] LABS: ALBUMIN 3.4 g/dl (3.4-5.0); ANION GAP 7 MMOL/L (8-16); BLOOD UREA NITROGEN 9.7 mg/dL (7-18); CO2 25 mmol/L (21-32); GLUCOSE,RANDOM 119 mg/dL (74-106); MAGNESIUM 2.2 mg/dL (1.8-2.4)
[2021-12-06 08:32] LABS: CREATININE 0.6 mg/dL (0.55-1.3); SGOT/AST 19 U/L (15-37); SGPT/ALT 18 U/L (13-61)
[2021-12-06 08:34] LABS: BILIRUBIN,TOTAL 0.5 mg/dL (0.2-1); TOT PROT 6.9 g/dl (6.4-8.2)
[2021-12-06 08:35] LABS: ALK PHOS 143 U/L (45-117)
[2021-12-06] MEDS ORDERED: MEROPENEM 1 GM in DEXTROSE 5%-WATER 100 ML IVPB SCH (10:00)
[2021-12-06] MEDS ORDERED: PHENobarbital 30 MG TABLET ONE (11:05)
[2021-12-06] MEDS ORDERED: levETIRAcetam 500 MG TABLET (FP) PO ONE (11:06)
[2021-12-06] MEDS ORDERED: TAMSULOSIN HCL 0.4 MG CAP ONE (11:06)
[2021-12-06] MEDS: FINASTERIDE 5 MG TABLET (FP) PO SCH (11:10)
[2021-12-06] MEDS: MEROPENEM 1 GM in DEXTROSE 5%-WATER 100 ML IVPB SCH ×2 (11:10→17:14)
[2021-12-06] MEDS: levETIRAcetam 500 MG TABLET (FP) PO SCH ×2 (11:10→22:29)
[2021-12-06] MEDS: TAMSULOSIN HCL 0.4 MG CAP PO SCH (11:10)
[2021-12-06] MEDS: PHENobarbital 30 MG TABLET PO SCH ×2 (11:10→22:29)
[2021-12-06 16:37] LABS: BLOOD UREA NITROGEN 12.4 mg/dL (7-18); CALCIUM 8.7 mg/dL (8.5-10.1)
[2021-12-06 16:41] LABS: CREATININE 0.6 mg/dL (0.55-1.3)
[2021-12-06] MEDS ORDERED: DEXTROSE 5%-WATER 100 ML IVPB ONE ×2 (17:04→23:36)
[2021-12-06] MEDS: LATANOPROST 0.005% OPHTH SOLN 2.5ML BOTTLE OU SCH (23:37)
[2021-12-07] MEDS: MEROPENEM 1 GM in DEXTROSE 5%-WATER 100 ML IVPB SCH ×3 (01:59→17:21)
[2021-12-07 08:45] LABS: ALBUMIN 3.2 g/dl (3.4-5.0); BLOOD UREA NITROGEN 14.7 mg/dL (7-18); CALCIUM 9.1 mg/dL (8.5-10.1)
[2021-12-07 08:48] LABS: CREATININE 0.5 mg/dL (0.55-1.3)
[2021-12-07 08:50] LABS: BILIRUBIN,TOTAL 0.3 mg/dL (0.2-1); TOT PROT 6.6 g/dl (6.4-8.2)
[2021-12-07] MEDS ORDERED: MEROPENEM 1 GM VIAL (RESTRICTED TO ID) IVPB ONE ×2 (09:00→17:18)
[2021-12-07] MEDS ORDERED: DEXTROSE 5%-WATER 100 ML IVPB ONE ×2 (09:01→17:18)
[2021-12-07] MEDS: FINASTERIDE 5 MG TABLET (FP) PO SCH (09:36)
[2021-12-07] MEDS: TAMSULOSIN HCL 0.4 MG CAP PO SCH (09:36)
[2021-12-07] MEDS: PHENobarbital 30 MG TABLET PO SCH ×3 (09:36→21:47)
[2021-12-07] MEDS: levETIRAcetam 500 MG TABLET (FP) PO SCH ×2 (09:36→21:47)
[2021-12-07] MEDS: LATANOPROST 0.005% OPHTH SOLN 2.5ML BOTTLE OU SCH (21:54)
[2021-12-07 22:34] VITALS: BMI 23.4
[2021-12-08] MEDS ORDERED: DEXTROSE 5%-WATER 100 ML IVPB ONE ×4 (01:31→23:43)
[2021-12-08] MEDS ORDERED: MEROPENEM 1 GM VIAL (RESTRICTED TO ID) IVPB ONE ×4 (01:31→23:43)
[2021-12-08] MEDS: MEROPENEM 1 GM in DEXTROSE 5%-WATER 100 ML IVPB SCH ×3 (01:35→17:08)
[2021-12-08] MEDS: PHENobarbital 30 MG TABLET PO SCH ×3 (06:00→21:31)
[2021-12-08] MEDS: TAMSULOSIN HCL 0.4 MG CAP PO SCH (09:25)
[2021-12-08] MEDS: MULTIVITAMINS (DAILY MVI) TABLET (FP) PO SCH (09:31)
[2021-12-08] MEDS: levETIRAcetam 500 MG TABLET (FP) PO SCH ×2 (09:31→21:31)
[2021-12-08] MEDS: FINASTERIDE 5 MG TABLET (FP) PO SCH (09:31)
[2021-12-08] MEDS: LATANOPROST 0.005% OPHTH SOLN 2.5ML BOTTLE OU SCH (21:32)
[2021-12-09] MEDS: MEROPENEM 1 GM in DEXTROSE 5%-WATER 100 ML IVPB SCH ×3 (03:00→17:03)
[2021-12-09] MEDS: PHENobarbital 30 MG TABLET PO SCH ×3 (06:04→22:18)
[2021-12-09 08:32] LABS: BLOOD UREA NITROGEN 17.8 mg/dL (7-18); CALCIUM 8.6 mg/dL (8.5-10.1)
[2021-12-09 08:35] LABS: CREATININE 0.6 mg/dL (0.55-1.3)
[2021-12-09] MEDS ORDERED: MEROPENEM 1 GM VIAL (RESTRICTED TO ID) IVPB ONE ×2 (09:28→17:01)
[2021-12-09] MEDS ORDERED: DEXTROSE 5%-WATER 100 ML IVPB ONE ×2 (09:29→17:01)
[2021-12-09] MEDS: levETIRAcetam 500 MG TABLET (FP) PO SCH ×2 (09:50→22:18)
[2021-12-09] MEDS: TAMSULOSIN HCL 0.4 MG CAP PO SCH (09:50)
[2021-12-09] MEDS: MULTIVITAMINS (DAILY MVI) TABLET (FP) PO SCH (09:50)
[2021-12-09] MEDS: FINASTERIDE 5 MG TABLET (FP) PO SCH (09:51)
[2021-12-09] MEDS: LATANOPROST 0.005% OPHTH SOLN 2.5ML BOTTLE OU SCH (22:18)
[2021-12-10] MEDS ORDERED: DEXTROSE 5%-WATER 100 ML IVPB ONE ×3 (02:20→18:26)
[2021-12-10] MEDS ORDERED: MEROPENEM 1 GM VIAL (RESTRICTED TO ID) IVPB ONE ×3 (02:20→18:26)
[2021-12-10] MEDS: MEROPENEM 1 GM in DEXTROSE 5%-WATER 100 ML IVPB SCH ×3 (02:22→18:32)
[2021-12-10] MEDS: PHENobarbital 30 MG TABLET PO SCH ×3 (06:11→22:48)
[2021-12-10] MEDS: TAMSULOSIN HCL 0.4 MG CAP PO SCH (08:34)
[2021-12-10 09:09] LABS: BASO % 0.1 % (0-2.0); HEMATOCRIT 30.3 % (35.4-49); HEMOGLOBIN 10.2 GM/dL (11.7-16.9); MCHC 33.7 g/dl (32.0-35.9); MEAN CELL VOLUME 91.9 fl (80-96); NEUT % 51.9 % (42.8-82.8); PLATELET COUNT 221 10^3/uL (134-434); RBC 3.29 M/mm3 (4.00-5.60); WHITE BLOOD COUNT 3.8 K/mm3 (4.0-10.0)
[2021-12-10] MEDS: FINASTERIDE 5 MG TABLET (FP) PO SCH (10:26)
[2021-12-10] MEDS: levETIRAcetam 500 MG TABLET (FP) PO SCH ×2 (10:26→22:47)
[2021-12-10] MEDS: MULTIVITAMINS (DAILY MVI) TABLET (FP) PO SCH (10:26)
[2021-12-10] MEDS: LATANOPROST 0.005% OPHTH SOLN 2.5ML BOTTLE OU SCH (22:48)
[2021-12-11] MEDS ORDERED: MEROPENEM 1 GM VIAL (RESTRICTED TO ID) IVPB ONE ×3 (00:51→16:44)
[2021-12-11] MEDS ORDERED: DEXTROSE 5%-WATER 100 ML IVPB ONE ×3 (00:51→16:44)
[2021-12-11] MEDS: MEROPENEM 1 GM in DEXTROSE 5%-WATER 100 ML IVPB SCH ×3 (01:13→17:06)
[2021-12-11] MEDS: PHENobarbital 30 MG TABLET PO SCH ×3 (06:25→22:39)
[2021-12-11] MEDS: TAMSULOSIN HCL 0.4 MG CAP PO SCH (08:46)
[2021-12-11] MEDS: FINASTERIDE 5 MG TABLET (FP) PO SCH (09:21)
[2021-12-11] MEDS: levETIRAcetam 500 MG TABLET (FP) PO SCH ×2 (09:21→22:39)
[2021-12-11] MEDS: MULTIVITAMINS (DAILY MVI) TABLET (FP) PO SCH (09:21)
[2021-12-11] MEDS: LATANOPROST 0.005% OPHTH SOLN 2.5ML BOTTLE OU SCH (22:39)
[2021-12-12] MEDS ORDERED: MEROPENEM 1 GM VIAL (RESTRICTED TO ID) IVPB ONE ×3 (01:57→17:07)
[2021-12-12] MEDS ORDERED: DEXTROSE 5%-WATER 100 ML IVPB ONE ×3 (01:58→17:08)
[2021-12-12] MEDS: MEROPENEM 1 GM in DEXTROSE 5%-WATER 100 ML IVPB SCH ×3 (02:09→17:16)
[2021-12-12] MEDS: PHENobarbital 30 MG TABLET PO SCH ×2 (07:09→13:35)
[2021-12-12 07:53] VITALS: RESP 20
[2021-12-12] MEDS: levETIRAcetam 500 MG TABLET (FP) PO SCH (09:48)
[2021-12-12] MEDS: FINASTERIDE 5 MG TABLET (FP) PO SCH (09:48)
[2021-12-12] MEDS: TAMSULOSIN HCL 0.4 MG CAP PO SCH (09:48)
[2021-12-12] MEDS: MULTIVITAMINS (DAILY MVI) TABLET (FP) PO SCH (09:48)
[2021-12-12 16:06] VITALS: BP 109/63; PULSE 71; TEMP 98.1
== END 2021-12-12 20:00 | DRG 699 ==
LOC: JER 19:13 → JERBED 23:02 → J2W 12-06 14:21 → J8W 12-09 18:53
PROVIDERS: ADMIT Internal Medicine; ATTEND Internal Medicine
DX: T83.511A Infection and inflammatory reaction due to indwelling urethral catheter, initial encounter (principal); K56.7 Ileus, unspecified; N13.30 Unspecified hydronephrosis; I42.9 Cardiomyopathy, unspecified; E87.2 Acidosis; Z16.12 Extended spectrum beta lactamase (ESBL) resistance; I69.351 Hemiplegia and hemiparesis following cerebral infarction affecting right dominant side; E87.6 Hypokalemia; N39.0 Urinary tract infection, site not specified; E11.9 Type 2 diabetes mellitus without complications; I10 Essential (primary) hypertension; R10.30 Lower abdominal pain, unspecified; R33.9 Retention of urine, unspecified; R10.9 Unspecified abdominal pain; B96.20 Unspecified Escherichia coli [E. coli] as the cause of diseases classified elsewhere; K52.9 Noninfective gastroenteritis and colitis, unspecified; Z68.23 Body mass index [BMI] 23.0-23.9, adult; R56.9 Unspecified convulsions; K22.4 Dyskinesia of esophagus; N40.1 Benign prostatic hyperplasia with lower urinary tract symptoms; Y83.9 Surgical procedure, unspecified as the cause of abnormal reaction of the patient, or of later complication, without mention of misadventure at the time of the procedure
CPT/HCPCS: 36415; 70450-TC; 71045-TC-FY; 80048; 80053; 80177; 80184; 81003; 82436; 82962; 83605; 83690; 83735; 83930; 83935; 84100; 84133; 84300; 84484; 85025; 87086; 87186; 93005; 93010; 93306-TC; 95816; 99285-25; C9803-CS; U0003; U0005

== ENCOUNTER 2023-12-27 16:08 | Observation (INO) | payer OTHER ==
[2023-12-27 16:23] VITALS: BMI 25.4
[2023-12-27 17:21] LABS: BASO % 0.1 % (0-2.0); HEMATOCRIT 37.5 % (35.4-49); HEMOGLOBIN 12.6 GM/dL (11.7-16.9); LYMPH % 26.7 % (8-40); MCH 32.8 pg (25.7-33.7); MCHC 33.7 g/dl (32.0-35.9); MEAN CELL VOLUME 97.2 fl (80-96); MONO % 9.1 % (3.8-10.2); NEUT % 64.1 % (42.8-82.8); PLATELET COUNT 232 10^3/uL (134-434); RBC 3.86 M/mm3 (4.00-5.60); RDW 14.1 % (11.9-15.9); WHITE BLOOD COUNT 4.2 K/mm3 (4.0-10.0)
[2023-12-27] MEDS ORDERED: ACETAMINOPHEN 500 MG TABLET (FP) ONE (17:36)
[2023-12-27] MEDS: ACETAMINOPHEN 500 MG TABLET (FP) PO ONE (17:38)
[2023-12-27 17:42] LABS: POTASSIUM 4.8 mmol/L (3.5-5.1)
[2023-12-27 17:44] LABS: CALCIUM 9.2 mg/dL (8.5-10.1)
[2023-12-27 17:45] LABS: ALBUMIN 3.7 g/dl (3.4-5.0); BLOOD UREA NITROGEN 18.1 mg/dL (7-18)
[2023-12-27 17:48] LABS: CREATININE 0.8 mg/dL (0.55-1.3)
[2023-12-27 17:49] LABS: BILIRUBIN,TOTAL 0.3 mg/dL (0.2-1); TOT PROT 7.1 g/dl (6.4-8.2)
[2023-12-27 18:58] LABS: POTASSIUM 4.2 mmol/L (3.5-5.1)
[2023-12-27 18:59] LABS: CALCIUM 8.8 mg/dL (8.5-10.1)
[2023-12-27 19:00] LABS: BLOOD UREA NITROGEN 17.5 mg/dL (7-18)
[2023-12-27 19:03] LABS: CREATININE 0.8 mg/dL (0.55-1.3)
[2023-12-27 20:21] LABS: URINE APPEARANCE CLEAR; URINE BILIRUBIN NEGATIVE (NEGATIVE); URINE COLOR YELLOW; URINE GLUCOSE (UA) NEGATIVE (NEGATIVE); URINE KETONE NEGATIVE (NEGATIVE); URINE LEUK ESTERASE NEGATIVE (NEGATIVE); URINE NITRITE NEGATIVE (NEGATIVE); URINE PROTEIN NEGATIVE (NEGATIVE); URINE UROBILINOGEN 0.2 mg/dL (0.2-1.0)
[2023-12-27] MEDS ORDERED: PHENobarbital 30 MG TABLET ONE (23:40)
[2023-12-27] MEDS ORDERED: levETIRAcetam 500 MG TABLET (FP) PO ONE (23:41)
[2023-12-27] MEDS: PHENobarbital 15 MG TABLET PO STA (23:45)
[2023-12-27] MEDS: levETIRAcetam 250 MG TABLET PO ONE (23:45)
[2023-12-28] MEDS ORDERED: PHENobarbital 30 MG TABLET ONE ×2 (05:53→14:20)
[2023-12-28] MEDS: PHENobarbital 30 MG TABLET PO SCH (05:59)
[2023-12-28 08:23] LABS: BASO % 0.1 % (0-2.0); HEMOGLOBIN 12.3 GM/dL (11.7-16.9); LYMPH % 34.9 % (8-40); MCHC 34.1 g/dl (32.0-35.9); MEAN CELL VOLUME 96.7 fl (80-96); MEAN PLT VOLUME 6.8 fl (7.5-11.1); MONO % 10.1 % (3.8-10.2); NEUT % 54.9 % (42.8-82.8); PLATELET COUNT 204 10^3/uL (134-434); RBC 3.72 M/mm3 (4.00-5.60); RDW 13.8 % (11.9-15.9); WHITE BLOOD COUNT 3.2 K/mm3 (4.0-10.0)
[2023-12-28 08:28] LABS: POTASSIUM 3.9 mmol/L (3.5-5.1)
[2023-12-28 08:31] LABS: ALBUMIN 3.4 g/dl (3.4-5.0); CALCIUM 9.4 mg/dL (8.5-10.1)
[2023-12-28 08:34] LABS: CREATININE 0.6 mg/dL (0.55-1.3)
[2023-12-28 08:36] LABS: BILIRUBIN,TOTAL 0.3 mg/dL (0.2-1); TOT PROT 6.5 g/dl (6.4-8.2)
[2023-12-28] MEDS ORDERED: levETIRAcetam 500 MG/5 ML INJECTION VIAL IVPB ONE (09:30)
[2023-12-28] MEDS ORDERED: ENOXAPARIN NA (PORCINE) 40 MG/0.4 ML DISP.SYRIN SQ ONE (09:31)
[2023-12-28] MEDS: levETIRAcetam 500 MG/5 ML INJECTION VIAL IVPB SCH (09:42)
[2023-12-28] MEDS: TAMSULOSIN HCL 0.4 MG CAP PO SCH (09:42)
[2023-12-28] MEDS: FINASTERIDE 5 MG TABLET (FP) PO SCH (09:42)
[2023-12-28] MEDS: ENOXAPARIN NA (PORCINE) 40 MG/0.4 ML DISP.SYRIN SQ SCH (09:42)
[2023-12-28] MEDS ORDERED: levETIRAcetam 500 MG TABLET (FP) PO SCH ×2 (10:00→22:00)
[2023-12-28] MEDS: levETIRAcetam 500 MG TABLET (FP) PO SCH (10:03)
[2023-12-28 10:09] VITALS: RESP 20; TEMP 98.3
[2023-12-28] MEDS ORDERED: TAMSULOSIN HCL 0.4 MG CAP PO SCH (10:28)
[2023-12-28 15:53] VITALS: BP 140/60; PULSE 57
[2023-12-28] MEDS ORDERED: DOCUSATE SODIUM 100 MG CAPSULE (FP) PO SCH (22:00)
[2023-12-28] MEDS ORDERED: LATANOPROST 0.005% OPHTH SOLN 2.5ML BOTTLE OU SCH (22:00)
== END 2023-12-28 16:22 ==
LOC: JER 16:08 → JERBED 12-28 00:18
PROVIDERS: ADMIT Internal Medicine; ATTEND Nurse Practitioner Acute Care
PROC: 3E023GC Introduction of Other Therapeutic Substance into Muscle, Percutaneous Approach (ICD-10-PCS; principal; 2023-12-28)
PROC: 3E033GC Introduction of Other Therapeutic Substance into Peripheral Vein, Percutaneous Approach (ICD-10-PCS; 2023-12-28)
DX: R56.9 Unspecified convulsions (principal); I69.351 Hemiplegia and hemiparesis following cerebral infarction affecting right dominant side; E87.1 Hypo-osmolality and hyponatremia; R33.9 Retention of urine, unspecified; Z29.9 Encounter for prophylactic measures, unspecified; Z87.440 Personal history of urinary (tract) infections
CPT/HCPCS: 36415; 70450-TC; 71045-TC-FY; 80048; 80053; 80177; 80184; 81003; 83735; 84100; 85025; 87086; 93005; 93010; 96372; 96374; 99285-25; G0378

== ENCOUNTER 2024-05-20 11:20 | Inpatient (IN) | payer OTHER ==
[2024-05-20] MEDS ORDERED: ACETAMINOPHEN INJECTION 100 ML ONE (13:07)
[2024-05-20] MEDS ORDERED: VANCOMYCIN 1,000 MG in DEXTROSE 5%-WATER - 250 ML IVPB ONE (13:51)
[2024-05-20] MEDS: ACETAMINOPHEN 1000 MG/100 ML BAG IVPB ONE (14:05)
[2024-05-20 14:19] LABS: VENOUS BASE EXCESS 3.6 mmol/L (-2-2); VENOUS PH 7.406 (7.310-7.410)
[2024-05-20 14:20] LABS: HEMATOCRIT 37.9 % (35.4-49); HEMOGLOBIN 12.4 GM/dL (11.7-16.9); MCH 31.4 pg (25.7-33.7); MCHC 32.8 g/dl (32.0-35.9); MEAN CELL VOLUME 95.5 fl (80-96); PLATELET COUNT 294 10^3/uL (134-434); RBC 3.97 M/mm3 (4.00-5.60); RDW 15.3 % (11.9-15.9); WHITE BLOOD COUNT 6.7 K/mm3 (4.0-10.0)
[2024-05-20] MEDS ORDERED: AZITHROMYCIN IVPB 500 MG in DEXTROSE 5%-WATER - 250 ML IVPB ONE (14:22)
[2024-05-20 14:25] LABS: EPI CELLS 4 /uL (0-25.1); HYALINE CASTS 1 /uL (0-3.1); PH,URINE 5.5 (5.0-8.0); URINE APPEARANCE CLEAR; URINE BACTERIA 2 /uL (0-1359); URINE BILIRUBIN NEGATIVE (NEGATIVE); URINE COLOR YELLOW; URINE GLUCOSE (UA) NEGATIVE (NEGATIVE); URINE KETONE NEGATIVE (NEGATIVE); URINE LEUK ESTERASE NEGATIVE (NEGATIVE); URINE NITRITE NEGATIVE (NEGATIVE); URINE PROTEIN 2+ (NEGATIVE); URINE UROBILINOGEN 0.2 mg/dL (0.2-1.0); URINE WBC 14 /uL (0-25.8)
[2024-05-20 14:27] LABS: INR 1.13 (0.83-1.09); PROTHROMBIN TIME (PATIENT) 12.9 SEC (9.7-13.0)
[2024-05-20 14:29] LABS: ACTIVATED PTT 26.5 SECONDS (25.2-36.5)
[2024-05-20 14:37] LABS: POTASSIUM 4.6 mmol/L (3.5-5.1)
[2024-05-20 14:39] LABS: CALCIUM 9.5 mg/dL (8.5-10.1)
[2024-05-20 14:40] LABS: ALBUMIN 3.4 g/dl (3.4-5.0); MAGNESIUM 2.8 mg/dL (1.8-2.4)
[2024-05-20 14:43] LABS: CREATININE 0.7 mg/dL (0.55-1.3); PHOSPHOROUS 2.5 mg/dL (2.5-4.9)
[2024-05-20 14:44] LABS: BILIRUBIN,TOTAL 0.5 mg/dL (0.2-1); URINE RBC 57.7 /uL (0-23.9)
[2024-05-20 14:45] LABS: TOT PROT 7.3 g/dl (6.4-8.2)
[2024-05-20 14:46] LABS: ANISOCYTOSIS 1+; MACROCYTOSIS 2+; OVALOCYTE 1+
[2024-05-20 14:48] LABS: N-TERMINAL BNP 448.3 pg/ml (5-125)
[2024-05-20] MEDS ORDERED: ACETAMINOPHEN 325 MG TABLET (FP) PO PRN (16:10)
[2024-05-20] MEDS ORDERED: ONDANSETRON 4 MG/2 ML VIAL IM PRN (16:14)
[2024-05-20] MEDS ORDERED: ALBUTEROL SO4 2.5/IPRATROPIUM 0.5 INH SOL 3 ML VIAL.NEB. NEB ONE (18:12)
[2024-05-20] MEDS ORDERED: ONDANSETRON 4 MG/2 ML VIAL ONE (18:12)
[2024-05-20] MEDS ORDERED: PIPERACILLIN/TAZOB 3.375 GM 3.375 GM/50 ML BAG IVPB ONE (18:13)
[2024-05-20] MEDS: ONDANSETRON 4 MG/2 ML VIAL IVPUSH ONE (18:30)
[2024-05-20] MEDS: ALBUTEROL SO4 2.5/IPRATROPIUM 0.5 INH SOL 3 ML VIAL.NEB. NEB SCH (18:30)
[2024-05-20] MEDS: PIPERACILLIN/TAZOB 3.375 GM 3.375 GM in DEXTROSE 5%-WATER - 50 ML IVPB ONE (18:39)
[2024-05-20] MEDS: PIPERACILLIN/TAZOB 3.375 GM 50 ML IVPB SCH (22:10)
[2024-05-20] MEDS: LACTULOSE 20 GM/30 ML UDC (FOR ORAL USE ONLY) PO SCH (22:43)
[2024-05-20] MEDS: LATANOPROST 0.005% OPHTH SOLN 2.5ML BOTTLE OU SCH (22:43)
[2024-05-20] MEDS: levETIRAcetam 500 MG TABLET (FP) PO SCH (22:44)
[2024-05-20] MEDS: PHENobarbital 30 MG TABLET PO SCH (22:44)
[2024-05-20] MEDS: FAMOTIDINE 20 MG TABLET PO SCH (22:44)
[2024-05-20] MEDS: AZITHROMYCIN IVPB 500 MG/250 ML BAG IVPB ONE (23:00)
[2024-05-20] MEDS: VANCOMYCIN/WATER FOR INJ (PEG) 1,000 MG/200 ML BAG IVPB ONE (23:38)
[2024-05-21 07:50] LABS: BASO % 0.1 % (0-2.0); HEMOGLOBIN 11.7 GM/dL (11.7-16.9); LYMPH % 12.6 % (8-40); MCH 31.4 pg (25.7-33.7); MCHC 32.4 g/dl (32.0-35.9); MEAN CELL VOLUME 96.9 fl (80-96); MEAN PLT VOLUME 7.4 fl (7.5-11.1); MONO % 8.6 % (3.8-10.2); NEUT % 78.7 % (42.8-82.8); PLATELET COUNT 276 10^3/uL (134-434); RBC 3.71 M/mm3 (4.00-5.60); RDW 14.8 % (11.9-15.9); WHITE BLOOD COUNT 5.3 K/mm3 (4.0-10.0)
[2024-05-21 08:13] LABS: ALBUMIN 3.1 g/dl (3.4-5.0); CALCIUM 9.1 mg/dL (8.5-10.1); MAGNESIUM 2.7 mg/dL (1.8-2.4)
[2024-05-21 08:14] LABS: BLOOD UREA NITROGEN 31.2 mg/dL (7-18)
[2024-05-21 08:16] LABS: CREATININE 0.9 mg/dL (0.55-1.3); PHOSPHOROUS 2.8 mg/dL (2.5-4.9)
[2024-05-21 08:18] LABS: BILIRUBIN,TOTAL 0.7 mg/dL (0.2-1); TOT PROT 6.6 g/dl (6.4-8.2)
[2024-05-21] MEDS: SENNOSIDES 8.6MG TABLET (FP) PO SCH (12:50)
[2024-05-21] MEDS: ENOXAPARIN NA (PORCINE) 40 MG/0.4 ML DISP.SYRIN SQ SCH (12:51)
[2024-05-21] MEDS: AZITHROMYCIN IVPB 500 MG/250 ML BAG IVPB SCH (12:51)
[2024-05-21] MEDS: FINASTERIDE 5 MG TABLET (FP) PO SCH (12:51)
[2024-05-21] MEDS: TAMSULOSIN HCL 0.4 MG CAP PO SCH (12:51)
[2024-05-21] MEDS: guaiFENesin/D-METHORPHAN HB 10 ML UNIT-DOSE CUPS PO PRN (12:51)
[2024-05-22 09:34] LABS: HEMATOCRIT 30.8 % (35.4-49); HEMOGLOBIN 10.1 GM/dL (11.7-16.9); LYMPH % 16.2 % (8-40); MCH 31.4 pg (25.7-33.7); MCHC 32.7 g/dl (32.0-35.9); MEAN CELL VOLUME 96.3 fl (80-96); MEAN PLT VOLUME 7.2 fl (7.5-11.1); MONO % 8.1 % (3.8-10.2); NEUT % 75.7 % (42.8-82.8); PLATELET COUNT 244 10^3/uL (134-434); RDW 14.7 % (11.9-15.9); WHITE BLOOD COUNT 4.8 K/mm3 (4.0-10.0)
[2024-05-22 09:51] LABS: POTASSIUM 3.5 mmol/L (3.5-5.1)
[2024-05-22 09:56] LABS: MAGNESIUM 2.5 mg/dL (1.8-2.4)
[2024-05-22 10:00] LABS: ALBUMIN 2.7 g/dl (3.4-5.0); BILIRUBIN,TOTAL 0.4 mg/dL (0.2-1); TOT PROT 5.7 g/dl (6.4-8.2)
[2024-05-22 10:01] LABS: BLOOD UREA NITROGEN 23.8 mg/dL (7-18); CALCIUM 8.9 mg/dL (8.5-10.1)
[2024-05-22 10:03] LABS: CREATININE 0.7 mg/dL (0.55-1.3)
[2024-05-22 11:07] VITALS: BMI 19.5
[2024-05-23] MEDS: PIPERACILLIN/TAZOB 3.375 GM 50 ML IVPB SCH (01:01)
[2024-05-23 09:01] LABS: HEMATOCRIT 30.6 % (35.4-49); HEMOGLOBIN 9.8 GM/dL (11.7-16.9); MCHC 32.2 g/dl (32.0-35.9); MEAN CELL VOLUME 96.3 fl (80-96); MEAN PLT VOLUME 7.1 fl (7.5-11.1); PLATELET COUNT 229 10^3/uL (134-434); RBC 3.17 M/mm3 (4.00-5.60); RDW 14.8 % (11.9-15.9)
[2024-05-23 09:20] LABS: POTASSIUM 3.6 mmol/L (3.5-5.1)
[2024-05-23 09:32] LABS: ALBUMIN 2.6 g/dl (3.4-5.0); BLOOD UREA NITROGEN 17.6 mg/dL (7-18); CREATININE 0.6 mg/dL (0.55-1.3)
[2024-05-23 09:33] LABS: BILIRUBIN,TOTAL 0.5 mg/dL (0.2-1); TOT PROT 5.8 g/dl (6.4-8.2)
[2024-05-23 09:35] LABS: MAGNESIUM 2.3 mg/dL (1.8-2.4)
[2024-05-24 09:39] LABS: BASO % 0.1 % (0-2.0); HEMATOCRIT 30.6 % (35.4-49); HEMOGLOBIN 9.9 GM/dL (11.7-16.9); LYMPH % 15.6 % (8-40); MCH 31.2 pg (25.7-33.7); MCHC 32.5 g/dl (32.0-35.9); MEAN CELL VOLUME 96.1 fl (80-96); MEAN PLT VOLUME 6.9 fl (7.5-11.1); MONO % 10.4 % (3.8-10.2); NEUT % 73.9 % (42.8-82.8); PLATELET COUNT 232 10^3/uL (134-434); RBC 3.18 M/mm3 (4.00-5.60); RDW 14.5 % (11.9-15.9)
[2024-05-24 10:05] LABS: CALCIUM 8.9 mg/dL (8.5-10.1)
[2024-05-24 10:06] LABS: ALBUMIN 2.6 g/dl (3.4-5.0); BLOOD UREA NITROGEN 14.1 mg/dL (7-18); MAGNESIUM 2.1 mg/dL (1.8-2.4)
[2024-05-24 10:10] LABS: BILIRUBIN,TOTAL 0.4 mg/dL (0.2-1); TOT PROT 5.6 g/dl (6.4-8.2)
[2024-05-24 10:12] LABS: CREATININE 0.6 mg/dL (0.55-1.3)
[2024-05-24] MEDS: LACTATED RINGERS SOLUTION 1,000 ML/1,000 ML INFUS.BAG IV SCH (22:03)
[2024-05-25 09:57] LABS: BASO % 0.1 % (0-2.0); HEMATOCRIT 29.5 % (35.4-49); HEMOGLOBIN 9.8 GM/dL (11.7-16.9); LYMPH % 16.5 % (8-40); MCH 31.7 pg (25.7-33.7); MCHC 33.3 g/dl (32.0-35.9); MONO % 11.6 % (3.8-10.2); NEUT % 71.8 % (42.8-82.8); PLATELET COUNT 237 10^3/uL (134-434); RDW 14.6 % (11.9-15.9); WHITE BLOOD COUNT 4.6 K/mm3 (4.0-10.0)
[2024-05-25 10:18] LABS: POTASSIUM 3.7 mmol/L (3.5-5.1)
[2024-05-25 10:22] LABS: ALBUMIN 2.5 g/dl (3.4-5.0)
[2024-05-25 10:23] LABS: BLOOD UREA NITROGEN 12.9 mg/dL (7-18); CALCIUM 8.9 mg/dL (8.5-10.1)
[2024-05-25 10:24] LABS: MAGNESIUM 1.9 mg/dL (1.8-2.4)
[2024-05-25 10:26] LABS: CREATININE 0.6 mg/dL (0.55-1.3)
[2024-05-25 10:27] LABS: BILIRUBIN,TOTAL 0.5 mg/dL (0.2-1); TOT PROT 5.5 g/dl (6.4-8.2)
[2024-05-25] MEDS: VANCOMYCIN/WATER 1250 MG 1,250 MG/250 ML BAG IVPB SCH (13:28)
[2024-05-26 10:03] LABS: BASO % 0.1 % (0-2.0); HEMATOCRIT 32.5 % (35.4-49); HEMOGLOBIN 10.6 GM/dL (11.7-16.9); LYMPH % 19.4 % (8-40); MCH 31.3 pg (25.7-33.7); MCHC 32.7 g/dl (32.0-35.9); MEAN CELL VOLUME 95.7 fl (80-96); MEAN PLT VOLUME 7.3 fl (7.5-11.1); MONO % 9.9 % (3.8-10.2); NEUT % 70.6 % (42.8-82.8); PLATELET COUNT 249 10^3/uL (134-434); RDW 14.7 % (11.9-15.9); WHITE BLOOD COUNT 5.5 K/mm3 (4.0-10.0)
[2024-05-26 23:34] VITALS: RESP 18
[2024-05-27 08:53] VITALS: TEMP 97.4
[2024-05-27 08:56] LABS: HEMOGLOBIN 9.7 GM/dL (11.7-16.9); LYMPH % 22.2 % (8-40); MCH 30.9 pg (25.7-33.7); MCHC 32.3 g/dl (32.0-35.9); MEAN CELL VOLUME 95.7 fl (80-96); MEAN PLT VOLUME 6.9 fl (7.5-11.1); MONO % 9.9 % (3.8-10.2); NEUT % 67.9 % (42.8-82.8); PLATELET COUNT 282 10^3/uL (134-434); RBC 3.13 M/mm3 (4.00-5.60); RDW 14.4 % (11.9-15.9); WHITE BLOOD COUNT 5.3 K/mm3 (4.0-10.0)
[2024-05-27 09:18] LABS: POTASSIUM 3.4 mmol/L (3.5-5.1)
[2024-05-27 09:22] LABS: ALBUMIN 2.4 g/dl (3.4-5.0); BLOOD UREA NITROGEN 14.1 mg/dL (7-18); CALCIUM 8.9 mg/dL (8.5-10.1)
[2024-05-27 09:26] LABS: CREATININE 0.5 mg/dL (0.55-1.3)
[2024-05-27 09:27] LABS: BILIRUBIN,TOTAL 0.7 mg/dL (0.2-1); TOT PROT 5.5 g/dl (6.4-8.2)
[2024-05-27 12:27] VITALS: BP 118/71; PULSE 71
== END 2024-05-27 13:03 | DRG 178 ==
LOC: JER 11:20 → JERBED 14:50 → J7W 18:59 → J6W 05-25 14:19
PROVIDERS: ADMIT Internal Medicine
DX: J69.0 Pneumonitis due to inhalation of food and vomit (principal); E44.0 Moderate protein-calorie malnutrition; I69.351 Hemiplegia and hemiparesis following cerebral infarction affecting right dominant side; Z68.1 Body mass index [BMI] 19.9 or less, adult; J98.11 Atelectasis; G40.909 Epilepsy, unspecified, not intractable, without status epilepticus; R13.10 Dysphagia, unspecified; E86.0 Dehydration; N40.0 Benign prostatic hyperplasia without lower urinary tract symptoms
CPT/HCPCS: 0241U-QW; 36415; 71045-TC-FY; 71250-TC; 80053; 81003; 82803; 83605; 83735; 83880; 84100; 84484; 85025; 85610; 85730; 87070; 87086; 87186; 87205; 87899; 93005; 93010; 94640; 97116-GP; 97161-GP; 99285-25; J0131